=== PATIENT | female | born 1975 | race Caucasian/White ===

== ENCOUNTER 2017-05-19 11:03 | Emergency (ER) | payer OTHER ==
[~2017-05-19] VITALS: Ht 175.3 cm; Wt 88.1 kg
[~2017-05-19 11:03] MED LIST: SYNTHROID0.05 MG PO
[2017-05-19 11:13] VITALS: Ht 175.3 cm; Wt 88.1 kg
[2017-05-19 13:04] VITALS: BP 126/87
== END 2017-05-19 13:04 | disposition home or self-care (01) ==
LOC: ED 11:03
DX: J06.9 Acute upper respiratory infection, unspecified (principal); Z88.2 Allergy status to sulfonamides

== ENCOUNTER 2017-09-12 10:22 | Emergency (ER) | payer OTHER ==
[~2017-09-12] VITALS: Ht 175.3 cm; Wt 86.6 kg
[2017-09-12 10:31] VITALS: Ht 175.3 cm; Wt 86.6 kg
[2017-09-12 11:39] VITALS: BP 126/85
== END 2017-09-12 11:39 | disposition home or self-care (01) ==
LOC: ED 10:22
DX: S00.03XA Contusion of scalp, initial encounter (principal); E03.9 Hypothyroidism, unspecified; F41.9 Anxiety disorder, unspecified; V49.9XXA Car occupant (driver) (passenger) injured in unspecified traffic accident, initial encounter; Y93.89 Activity, other specified; Y92.89 Other specified places as the place of occurrence of the external cause; Y99.8 Other external cause status

== ENCOUNTER 2018-06-09 09:38 | Emergency (ER) | payer OTHER ==
[~2018-06-09] VITALS: Ht 175.3 cm; Wt 90.3 kg
[2018-06-09 10:06] VITALS: Ht 175.3 cm; Wt 90.3 kg
[2018-06-09 11:25] VITALS: BP 124/78
== END 2018-06-09 11:25 | disposition home or self-care (01) ==
LOC: ED 09:38
DX: J06.9 Acute upper respiratory infection, unspecified (principal); F41.9 Anxiety disorder, unspecified; Z88.2 Allergy status to sulfonamides; Z88.8 Allergy status to other drugs, medicaments and biological substances

== ENCOUNTER 2018-06-12 14:19 | Emergency (ER) | payer OTHER ==
[~2018-06-12] VITALS: Ht 175.3 cm; Wt 90.7 kg
[2018-06-12 14:28] VITALS: Ht 175.3 cm; Wt 90.7 kg
[2018-06-12 15:58] VITALS: BP 135/89
== END 2018-06-12 17:09 | disposition home or self-care (01) ==
LOC: ED 14:19
DX: B34.9 Viral infection, unspecified (principal); F41.9 Anxiety disorder, unspecified; Z88.2 Allergy status to sulfonamides; Z88.8 Allergy status to other drugs, medicaments and biological substances
CPT/HCPCS: J1885; Q0092

== ENCOUNTER 2020-04-07 21:46 | Emergency (ER) | payer SELFPAY ==
[~2020-04-07] VITALS: Ht 175.3 cm; Wt 88.2 kg
[2020-04-07 21:51] VITALS: Ht 175.3 cm; Wt 88.2 kg
[2020-04-07 23:17] VITALS: BP 119/78
== END 2020-04-07 23:00 | disposition home or self-care (01) ==
LOC: ED 21:46
DX: R04.0 Epistaxis (principal); Z88.2 Allergy status to sulfonamides

== ENCOUNTER 2020-08-17 14:19 | Emergency (ER) | payer OTHER ==
[~2020-08-17] VITALS: Ht 175.3 cm; Wt 89.4 kg
[2020-08-17 14:45] VITALS: Ht 175.3 cm; Wt 89.4 kg
[2020-08-17] MEDS ORDERED: IBU600 M2 PO (16:51)
[2020-08-17] MEDS ORDERED: AMO500 PO (16:51)
[2020-08-17] MEDS ORDERED: SUDAFED PE10 M1 PO (16:51)
[2020-08-17 17:05] VITALS: BP 124/78
== END 2020-08-17 17:05 | disposition home or self-care (01) ==
LOC: ED 14:19
DX: J01.90 Acute sinusitis, unspecified (principal); Z88.2 Allergy status to sulfonamides; Z88.1 Allergy status to other antibiotic agents